=== PATIENT | female | born 1980 | race Caucasian/White ===

== ENCOUNTER 2016-11-16 10:43 | Outpatient (CLI) | payer OTHER ==
--- NOTE | 2016-11-16 13:31 | DIAGNOSTIC IMAGING REPORT ---
PROCEDURE: XR UPPER GI WITH SBFT INDICATION: Nausea. Chronic diarrhea. TECHNIQUE: Double contrast study. Fluoroscopy time, 4.1 minutes; 2154.40 mGy. 37 fluoroscopic images (including cinefluoroscopy). COMPARISON: None. FINDINGS: Preliminary php magento developer view demonstrates normal bowel pattern. There is moderate gastroesophageal reflux. Esophagus is otherwise normal. Stomach and duodenum normal. There is relatively rapid transit through the small bowel with contrast reaching the colon in 10 minutes. However, small bowel pattern is normal including the terminal ileum. IMPRESSION: 1. Moderate gastroesophageal reflux. 2. Relatively rapid transit through the small bowel (10 minutes). However, small bowel pattern is normal, including terminal ileum. 3. Findings discussed with Dr. Lopez.
--- NOTE | 2016-11-16 13:31 | DIAGNOSTIC IMAGING REPORT ---
PROCEDURE: XR UPPER GI WITH SBFT INDICATION: Nausea. Chronic diarrhea. TECHNIQUE: Double contrast study. Fluoroscopy time, 4.1 minutes; 2154.40 mGy. 37 fluoroscopic images (including cinefluoroscopy). COMPARISON: None. FINDINGS: Preliminary shampooer view demonstrates normal bowel pattern. There is moderate gastroesophageal reflux. Esophagus is otherwise normal. Stomach and duodenum normal. There is relatively rapid transit through the small bowel with contrast reaching the colon in 10 minutes. However, small bowel pattern is normal including the terminal ileum. IMPRESSION: 1. Moderate gastroesophageal reflux. 2. Relatively rapid transit through the small bowel (10 minutes). However, small bowel pattern is normal, including terminal ileum. 3. Findings discussed with Dr. Lopez.
== END 2016-11-16 23:00 ==
LOC: XR SRH 10:43
DX: K21.9 Gastro-esophageal reflux disease without esophagitis (principal)